=== PATIENT | male | born 1960 | race Caucasian/White ===

== ENCOUNTER → 2016-04-12 | Outpatient (CLI) | payer BC ==
[~2016-04-12] MED LIST: ADVIN25/60 INH; ATRINS NEB; CMD10 PO; DMD20 PO; DXY100 PO; HYDR-4332 PO; IPRASOL34 INH; LANS30CA63 PO; MELO15TA4 PO; METH1TAB81 PO; METO5TAB25 PO; NRN300 PO; OXGN; POTA-327 PO; POTA10TA PO; PRED10TA PO; SENN-61 PO; SPRIN/30 INH; TIOTCAP INH; VNTHFA/IN INH; WARF5TAB90 PO
== END | disposition home or self-care (01) ==
LOC: C.RDSM 09:39
PROVIDERS: ATTEND Orthopaedic Surgery Sports Medicine
DX: M17.9 Osteoarthritis of knee, unspecified (principal)

== ENCOUNTER → 2016-07-24 | Outpatient (CLI) | payer OTHER, BC ==
[~2016-07-24] MED LIST changes: -PRED10TA PO
--- NOTE | 2016-07-24 17:00 | DIAGNOSTIC IMAGING REPORT ---
MRI THE LEFT UPPER ARM NO CONTRAST CLINICAL HISTORY: Pain, swelling, black and blue arm. COMPARISON STUDY: No previous studies for comparison. FINDINGS: Imaging was performed the sagittal axial and coronal planes. No intravenous contrast was administered. The study is limited from a technical standpoint. The patient would not tolerate additional imaging. There are no areas of marrow replacement to indicate neoplasm. There are no areas of marrow edema to indicate an acute occult fracture. There is irregularity involving the posterior aspect of the humeral head possibly related to an old injury. The shoulder is very poorly evaluated on this examination of the mid arm. There is however a suspected proximal bicipital tendon rupture. There is an 18 mm mass located anterior to the humeral neck. This demonstrates decreased T1 signal and increased T2 signal. Mild nonspecific this may represent a hematoma. There is a small amount of fluid tracking along the lateral margin of the biceps muscle. This is likely posttraumatic. IMPRESSION: 1. Very limited study from a technical standpoint 2. No evidence of occult fracture 3. Suspected proximal bicipital tendon rupture. An MRI of the shoulder is recommended in follow-up 4. Fluid tracking along the lateral margin of the biceps muscle, likely posttraumatic. Electronically signed by: Chaz Stewart M.D. 07/24/2016 4:59 PM Dictated Date/Time: 07/24/2016 4:53 PM
== END | disposition home or self-care (01) ==
LOC: C.MRI 14:53
PROVIDERS: ATTEND Nurse Practitioner Family
DX: M79.89 Other specified soft tissue disorders (principal); M79.602 Pain in left arm

== ENCOUNTER 2016-09-27 16:00 | Emergency (ER) | payer OTHER, BC ==
[~2016-09-27] VITALS: Ht 170.2 cm; Wt 94.0 kg
[~2016-09-27 16:00] MED LIST changes: -ATRINS NEB; -POTA10TA PO; -SPRIN/30 INH; -WARF5TAB90 PO
[2016-09-27 16:12] VITALS: TEMP 36.5; Ht 170.2 cm; Wt 94.0 kg
[2016-09-27] MEDS ORDERED: POTA10TA PO (17:15)
[2016-09-27] MEDS ORDERED: WARF5TAB90 PO (17:15)
[2016-09-27] MEDS ORDERED: SPRIN/30 INH (17:15)
[2016-09-27] MEDS ORDERED: ATRINS NEB (17:15)
--- NOTE | 2016-09-27 18:14 | DIAGNOSTIC IMAGING REPORT ---
RIGHT HIP UNILATERAL 2 VIEWS CLINICAL HISTORY: Right hip pain. COMPARISON: None. DISCUSSION: No acute fractures are visualized. There is cortical/periosteal thickening involving the proximal femoral diaphysis, likely chronic. IMPRESSION: 1. No acute fractures 2. No evidence of significant joint space narrowing 3. Cortical/periosteal thickening involving the proximal femoral diaphysis, likely chronic Electronically signed by: Chaz Stewart M.D. 09/27/2016 6:13 PM Dictated Date/Time: 09/27/2016 6:12 PM
--- NOTE | 2016-09-27 18:23 | EMERGENCY ROOM VISIT NOTE ---
ED Visit Note First contact with patient: 16:55 CHIEF COMPLAINT: Right hip injury at work 2 hours ago HISTORY OF PRESENT ILLNESS: Patient is a 56-year-old white male who presents emergency department for evaluation of right hip pain and bruising after a mechanical fall at work today. 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 He is chronically anticoagulated on warfarin secondary to history of DVT and PE. His INR was 3.2 3 days ago. He noted swelling and bruising in the right buttocks/right hip region almost immediately , states that it has gone down slightly. He notes discomfort in the hip and buttocks that he rates a 4/10. He is able to walk and bear weight but it is slightly painful. He did not strike his head or lose consciousness. He denies any other injuries. REVIEW OF SYSTEMS: Review of systems as per HPI. All other systems reviewed were negative. At least 6 systems reviewed. PMH: Electronic medical records are reviewed and summarized as above/below. See Problem List. SOCIAL HISTORY: Patient lives at home. Smoker. PHYSICAL EXAM: Vital Signs: Reviewed Nurse's notes. CONSTITUTIONAL: Patient is a pleasant, well-appearing 56-year-old white male who is awake and alert and in no acute distress. MUSCULOSKELETAL: Examination of the right hip and lower extremity did not show any obvious deformity. He has swelling and hematoma palpable in the soft tissue of the right gluteal region. He does have some discomfort over the right greater trochanter. No pain in the groin. Leg lengths are symmetrical. He has some discomfort with logroll, no pain with hip flexion or internal or external rotation. Distal pulses are easily palpable. Sensation light touch is intact. Pelvis is stable to rock and compression. EMERGENCY DEPARTMENT COURSE: X-rays of the right hip were obtained, and negative for acute fracture or bony abnormality. The patient is anticoagulated on Coumadin, INR was greater than 3 just a few days ago. He sustained a mechanical fall, landing striking his right hip and buttocks. He has a hematoma in the soft tissue, no fracture by radiographs. Patient is otherwise without injury. He was reassured. He was encouraged to ice the area, use Tylenol for discomfort, and can resume normal activity as his symptoms allow. Differential diagnosis included fracture, dislocation, contusion, soft tissue injury, among others. The patient rated his discomfort a 2/10 at discharge. Medication reconciliation: I attest that I have personally reviewed the patient' s current medication list. Patient was reviewed in the [facility] Prescription Drug Monitoring Program, he receives regular Amidon 10 mg prescriptions from his primary physician registered dental assistant rda, Norberto Watson. His last prescription was filled 09/16. Blood pressure screening : Patient was found to have normal blood pressure on screening and does not require follow-up. RIGHT HIP UNILATERAL 2 VIEWS CLINICAL HISTORY: Right hip pain. COMPARISON: None. DISCUSSION: No acute fractures are visualized. There is cortical/periosteal thickening involving the proximal femoral diaphysis, likely chronic. IMPRESSION: 1. No acute fractures 2. No evidence of significant joint space narrowing 3. Cortical/periosteal thickening involving the proximal femoral diaphysis, likely chronic Problem List Medical Problems: (1) Anticoagulated on Coumadin Status: Chronic (2) COPD (chronic obstructive pulmonary disease) Status: Chronic (3) COPD exacerbation Status: Resolved (4) Diverticulitis of colon with perforation Status: Resolved (5) GERD (gastroesophageal reflux disease) Status: Chronic (6) History of DVT (deep vein thrombosis) Status: Resolved (7) History of pulmonary embolism Status: Resolved (8) Hypoxia Status: Resolved (9) Pneumonia Status: Resolved (10) Respiratory distress Status: Resolved (11) Shortness of breath Status: Resolved (12) Wheezing on auscultation Status: Resolved Surgical Problems: (1) H/O hernia repair Status: Resolved (2) H/O: knee surgery Status: Resolved (3) Hx of appendectomy Status: Resolved (4) Hx of cholecystectomy Status: Resolved (5) S/p closure of enterostomy Permanent Comment: with large intestine resection and anastomosis 06/05/2015 Status: Resolved (6) S/P exploratory laparotomy Permanent Comment: for diverticulitis with perforation November 2014 Status: Resolved (7) S/P gastric bypass Status: Resolved (8) S/P tonsillectomy Status: Resolved Current/Historical Medications Scheduled Doxycycline Hyclate (Doxycycline Hyclate), 100 MG PO BID Fluticasone Prop/Salmeterol (Advair Diskus 250/50 60 Dose), 1 PUFF INH BID Gabapentin (Gabapentin), 300 MG PO TID Home O2 Therapy (Oxygen), 2.5 LITER NA HS Ipratropium [place] (Ipratropium [place]), 1 VIAL NEB QID Lansoprazole (Prevacid), 30 MG PO DAILY Potassium Chloride (K-Tabs), 10 MEQ PO DAILY Senna (Senokot), 1 TAB PO BID Tiotropium [place] (Spiriva Handihaler), 1 CAP INH DAILY Torsemide (Torsemide), 20 MG PO DAILY Warfarin Sodium (Coumadin), 9 MG PO DAILY Scheduled PRN Albuterol Hfa (Ventolin Hfa), 2 PUFFS INH Q6 PRN for Wheezing Hydrocodone-Acetaminophen (LORTAB 10-325 mg), 1-2 TAB PO TID PRN for Pain Metolazone (Zaroxolyn), 5 MG PO 3XWK PRN for WEIGHT GAIN Allergies Coded Allergies: Penicillins (Verified Allergy, Intermediate, hives, 01/03/16) Vital Signs Date Time Temp Pulse Resp B/P (MAP) Pulse Ox O2 Delivery O2 Flow Rate FiO2 09/27/16 19:09 78 20 114/63 98 09/27/16 16:12 36.5 89 18 129/74 96 Room Air Departure Information Impression Primary Impression: Right hip pain Additional Impressions: Contusion of buttock Work related injury Referrals Joon Watson PA-C (PCP) Patient Instructions My [facility] Additional Instructions Acetaminophen(Tylenol) may be used for fever or pain. Use 1000mg every six hours as needed. Avoid using more than 3000mg in a 24 hour period. This medication can be taken if you need to drive, work, or perform activities which may be dangerous when taking narcotic pain medication. Ice compresses for 20 minutes at a time four times daily for 2-3 days. Rest and elevate your injury. Continue current medications. Return to the ER immediately for any numbness, tingling, severe pain, extreme swelling in the extremity or as needed. Follow-up with your workers compensation physician for recheck next week. Problem Qualifiers Additional Impressions: Contusion of buttock Encounter type: initial encounter Qualified Codes: S30.0XXA - Contusion of lower back and pelvis, initial encounter
[2016-09-27 19:09] VITALS: BP 114/63; PULSE 78; O2SAT 98
== END 2016-09-27 19:11 | disposition home or self-care (01) ==
LOC: C.EDB 16:01 → C.EDD 19:11
DX: S30.0XXA Contusion of lower back and pelvis, initial encounter (principal); M25.551 Pain in right hip; W01.0XXA Fall on same level from slipping, tripping and stumbling without subsequent striking against object, initial encounter; Y92.89 Other specified places as the place of occurrence of the external cause; Y99.0 Civilian activity done for income or pay; F17.200 Nicotine dependence, unspecified, uncomplicated; J44.9 Chronic obstructive pulmonary disease, unspecified; K21.9 Gastro-esophageal reflux disease without esophagitis; K57.32 Diverticulitis of large intestine without perforation or abscess without bleeding; Z86.711 Personal history of pulmonary embolism; Z86.718 Personal history of other venous thrombosis and embolism; Z98.84 Bariatric surgery status; Z90.49 Acquired absence of other specified parts of digestive tract; Z98.890 Other specified postprocedural states; Z79.01 Long term (current) use of anticoagulants; Z79.899 Other long term (current) drug therapy; Z88.0 Allergy status to penicillin

== ENCOUNTER → 2016-10-02 | Outpatient (CLI) | payer OTHER, BC ==
[~2016-10-02] MED LIST changes: +ATRINS NEB; -CMD10 PO; -IPRASOL34 INH; -MELO15TA4 PO; -METH1TAB81 PO; -POTA-327 PO; +POTA10TA PO; +SPRIN/30 INH; -TIOTCAP INH; +WARF5TAB90 PO
[2016-10-02 14:42] LABS: INR 1.9 (0.9-1.1); PROTHROMBIN TIME (PATIENT) 20.9 SECONDS (9.0-12.0)
--- NOTE | 2016-10-02 14:52 | DIAGNOSTIC IMAGING REPORT ---
L-SPINE MIN 4 VIEWS ROUTINE CLINICAL HISTORY: Pain following fall. COMPARISON: None FINDINGS: There is slight leftward curvature of the lumbar spine. Vertebral body heights are maintained. There is no acute fracture. There is severe disc space narrowing with osteophyte formation and vacuum disc phenomenon at several levels within the lumbar spine. Note is made of cholecystectomy clips and bowel anastomoses. There is moderate multilevel facet arthrosis. IMPRESSION: 1. No lumbar spine fracture. 2. Moderate to severe multilevel degenerative disc disease and facet arthrosis. Electronically signed by: Cornelius Max M.D. 10/02/2016 2:51 PM Dictated Date/Time: 10/02/2016 2:49 PM
--- NOTE | 2016-10-02 14:52 | DIAGNOSTIC IMAGING REPORT ---
LEFT RIBS UNILATERAL WITH PA CHEST CLINICAL HISTORY: PAIN AFTER FALL trauma. Pain. COMPARISON STUDY: None FINDINGS: Normal left ribs. Negative PA chest. IMPRESSION: No acute process. The above report was generated using voice recognition software. It may contain grammatical, syntax or spelling errors. Electronically signed by: Malcolm Gomez M.D. 10/02/2016 2:50 PM Dictated Date/Time: 10/02/2016 2:49 PM
== END | disposition home or self-care (01) ==
LOC: C.LAB1850 13:52
PROVIDERS: ATTEND Nurse Practitioner Family
DX: R52 Pain, unspecified (principal)

== ENCOUNTER 2017-04-21 20:06 | Emergency (ER) | payer OTHER, BC ==
[~2017-04-21] VITALS: Ht 165.1 cm; Wt 98.0 kg
[2017-04-21 20:07] VITALS: BP 99/91; PULSE 100; TEMP 36.8; O2SAT 95; Ht 165.1 cm; Wt 98.0 kg
[2017-04-21] MEDS ORDERED: LIDOCAINE/EPINEPHRINE 1% 20 ML VIAL INFIL ONE (20:15)
--- NOTE | 2017-04-22 18:30 | EMERGENCY ROOM VISIT NOTE ---
History First contact with patient: 20:09 Chief Complaint: LACERATION/CUT (SUT/DERMABOND) Stated Complaint: LEG BLEEDING Nursing Triage Summary: Pt on Coumadin. Pt was getting out of car and had scraped left calf. Police had applied tourniquet at scene. Large horseshoe shape laceration to left calf. History of Present Illness The patient is a 56 year old male who presents to the Emergency Room with complaints of left lower leg bleeding after injury that occurred about 90 minutes ago. The patient is getting out of the vehicle, when the car door struck into his leg, causing a laceration. The patient states that he was at work when this occurred. The patient is on Coumadin for blood clots, and had an INR performed earlier today that was 2.5. The patient was attended to via police, who placed a tourniquet at the scene. He arrives via ambulance and does not report additional injury. The patient rates his discomfort a 4/10. He believes he is up-to-date on his tetanus. Review of Systems More than 10 systems were reviewed and otherwise negative with the exception of history of present illness. Past Medical/Surgical History Medical Problems: (1) Anticoagulated on Coumadin (2) COPD (chronic obstructive pulmonary disease) (3) COPD exacerbation (4) Diverticulitis of colon with perforation (5) GERD (gastroesophageal reflux disease) (6) History of DVT (deep vein thrombosis) (7) History of pulmonary embolism (8) Hypoxia (9) Pneumonia (10) Respiratory distress (11) Shortness of breath (12) Wheezing on auscultation Surgical Problems: (1) H/O hernia repair (2) H/O: knee surgery (3) Hx of appendectomy (4) Hx of cholecystectomy (5) S/p closure of enterostomy (6) S/P exploratory laparotomy (7) S/P gastric bypass (8) S/P tonsillectomy Family History No pertinent family history Social History Smoking Status: Current Every Day Smoker Alcohol Use: none Drug Use: none Marital Status: Housing Status: lives with significant other Occupation Status: employed Current/Historical Medications Scheduled Doxycycline Hyclate (Doxycycline Hyclate), 100 MG PO BID Fluticasone Prop/Salmeterol (Advair Diskus 250/50 60 Dose), 1 PUFF INH BID Gabapentin (Gabapentin), 300 MG PO TID Home O2 Therapy (Oxygen), 2.5 LITER NA HS Ipratropium [place] (Ipratropium [place]), 1 VIAL NEB QID Lansoprazole (Prevacid), 30 MG PO DAILY Potassium Chloride (K-Tabs), 10 MEQ PO DAILY Senna (Senokot), 1 TAB PO BID Tiotropium [place] (Spiriva Handihaler), 1 CAP INH DAILY Torsemide (Torsemide), 20 MG PO DAILY Warfarin Sodium (Coumadin), 9 MG PO DAILY Scheduled PRN Albuterol Hfa (Ventolin Hfa), 2 PUFFS INH Q6 PRN for Wheezing Hydrocodone-Acetaminophen (LORTAB 10-325 mg), 1-2 TAB PO TID PRN for Pain Metolazone (Zaroxolyn), 5 MG PO 3XWK PRN for WEIGHT GAIN Physical Exam Vital Signs Date Time Temp Pulse Resp B/P (MAP) Pulse Ox O2 Delivery O2 Flow Rate FiO2 04/21/17 20:07 36.8 100 18 99/91 95 Room Air Physical Exam VITALS: Vitals are noted on the nurse's note and reviewed by myself. Vital signs stable. GENERAL: Well-developed, well-nourished, white male, who is in no acute distress and resting comfortably. Patient is cooperative with the examination. HEART: Regular rate and rhythm without murmurs gallops or rubs. LUNGS: Clear to auscultation bilaterally without wheezes, rales or rhonchi. No retractions or accessory muscle use. MUSCULOSKELETAL: There is a 6 cm U-shaped laceration to the left medial posterior calf. This does gape and will require repair. There is minimal bleeding, however there is return again in place just proximal to the laceration. The patient is intact neurovascularly. No other injuries noted. Medical Decision & Procedures Procedure Laceration repair. Patient elects to have their laceration repaired. Verbal consent was obtained to perform the procedure. There is an abundance of materials available for the procedure. Patient is not allergic to latex. Procedure was performed by NELSON Holman, under my direct supervision. Using sterile technique the wound was cleaned with Betadine. The area was sterilely draped. 10 ml of 1% buffered lidocaine with epi was used to anesthetize the left leg laceration. Once the patient was anesthetized, the wound was copiously irrigated under pressure with sterile saline. The wound was explored and there were no deep structures injured such as tendons, bone, or significant blood vessels. The laceration was repaired using 17 monalisa with the wound edges being well approximated. Hemostasis was achieved. The area was cleaned with sterile saline and dressed with bacitracin ointment and bandage. Patient tolerated the procedure well without complications. Blood loss was negligible. ED Course Physical exam and history were performed. Nursing notes, EMR, and Medication List were personally reviewed. Patient appears to have suffered a laceration to his left posterior leg. The wound was numbed and cleansed. Repair was performed as above without complication. Overall the patient appears well for discharge home. His INR will need to be rechecked on a short interval. He was dressed with a pressure dressing. He was otherwise invited back to the ER with any new, worsening, or concerning symptoms. The chart was completed utilizing [email or web address] Speech Voice Recognition Software. Grammatical errors, random word insertions, pronoun errors, and incomplete sentences are an occasional consequence of this system due to software limitations, ambient noise, and hardware issues. Any formal questions or concerns about the content, text, or information contained within the body of this dictation should be directly addressed to the provider for clarification. . Medical Decision Differential diagnosis includes, but is not limited to: Laceration, abrasion, foreign body, anticoagulant use, and others Impression Primary Impression: Laceration of left leg Departure Information Dispostion Home / Self-Care Condition GOOD Forms HOME CARE DOCUMENTATION FORM, IMPORTANT VISIT INFORMATION Patient Instructions [facility], ED Laceration All, ED Scar Tips to Minimize Additional Instructions Keep wound clean and dry. Do not allow any crusting or dried blood to accumulate on sutures. If this occurs, use a mild soap/water on a Q-tip to clean the wound. Do not use Peroxide to clean the wound as this can delay healing Use an antibiotic ointment like Bacitracin for 3-4 days, then let wound dry. You may bathe and shower as normal, but DO NOT SOAK the wound. Suture removal in about 12-14 days with your Family Doctor or in the ER. Return sooner for any signs of infection, increasing redness, swelling, or drainage.
[2017-04-29] MEDS ORDERED: WARF4TAB8 PO (11:57)
[2017-04-29] MEDS ORDERED: WARF6TAB5 PO (11:57)
[2017-04-29] MEDS ORDERED: HYDR-5688 PO (14:43)
[2017-04-29] MEDS ORDERED: CEPH500C PO (14:43)
== END 2017-04-21 22:18 | disposition home or self-care (01) ==
LOC: EDBD 20:06 → C.EDD 20:07
DX: S81.812A Laceration without foreign body, left lower leg, initial encounter (principal); V48.4XXA Person boarding or alighting a car injured in noncollision transport accident, initial encounter; Y99.0 Civilian activity done for income or pay; J44.9 Chronic obstructive pulmonary disease, unspecified; K21.9 Gastro-esophageal reflux disease without esophagitis; F17.200 Nicotine dependence, unspecified, uncomplicated; Z86.711 Personal history of pulmonary embolism; Z86.718 Personal history of other venous thrombosis and embolism; Z79.01 Long term (current) use of anticoagulants; Z98.84 Bariatric surgery status

== ENCOUNTER 2017-05-02 12:10 | Emergency (ER) | payer OTHER, BC ==
[~2017-05-02] VITALS: Ht 163.8 cm; Wt 98.0 kg
[~2017-05-02 12:10] MED LIST changes: +CEPH500C PO; -HYDR-4332 PO; +HYDR-5688 PO; +WARF4TAB8 PO; -WARF5TAB90 PO; +WARF6TAB5 PO
[2017-05-02 12:13] VITALS: TEMP 36.6; Ht 163.8 cm; Wt 98.0 kg
[2017-05-02] MEDS ORDERED: HYDROCODONE/ACETAMIN 5/325MG TAB PO STA (12:41)
[2017-05-02] MEDS ORDERED: HYDR-5688 PO (13:26)
--- NOTE | 2017-05-02 13:43 | EMERGENCY ROOM VISIT NOTE ---
History First contact with patient: 12:18 Chief Complaint: SUTURE/STAPLE REMOVAL Stated Complaint: L LEG FOLLOW UP STICHES REMOVED History of Present Illness The patient is a 56 year old male who presents to the Emergency Room for suture removal of left lower leg and cellulitis recheck of the left lower leg. The patient states that he had the sutures placed 11 days ago. He denies any purulent drainage. He states it is very painful in that area. He states it hurts to bear weight. He denies any fever. He is taking the Keflex as prescribed. Review of Systems 10 system review was performed and was negative unless stated otherwise history of present illness. Past Medical/Surgical History Medical Problems: (1) Anticoagulated on Coumadin (2) COPD (chronic obstructive pulmonary disease) (3) COPD exacerbation (4) Diverticulitis of colon with perforation (5) GERD (gastroesophageal reflux disease) (6) History of DVT (deep vein thrombosis) (7) History of pulmonary embolism (8) Hypoxia (9) Pneumonia (10) Respiratory distress (11) Shortness of breath (12) Wheezing on auscultation Surgical Problems: (1) H/O hernia repair (2) H/O: knee surgery (3) Hx of appendectomy (4) Hx of cholecystectomy (5) S/p closure of enterostomy (6) S/P exploratory laparotomy (7) S/P gastric bypass (8) S/P tonsillectomy Social History Smoking Status: Current Every Day Smoker Alcohol Use: none Drug Use: none Marital Status: Housing Status: lives with significant other Occupation Status: employed Current/Historical Medications Scheduled Cephalexin Monohydrate (Keflex), 500 MG PO QID Doxycycline Hyclate (Doxycycline Hyclate), 100 MG PO BID Fluticasone Prop/Salmeterol (Advair Diskus 250/50 60 Dose), 1 PUFF INH BID Gabapentin (Gabapentin), 300 MG PO TID Home O2 Therapy (Oxygen), 2.5 LITER NA HS Ipratropium [place] (Ipratropium [place]), 1 VIAL NEB QID Lansoprazole (Prevacid), 30 MG PO DAILY Potassium Chloride (K-Tabs), 10 MEQ PO DAILY Senna (Senokot), 2 TAB PO DAILY Tiotropium [place] (Spiriva Handihaler), 1 CAP INH DAILY Torsemide (Torsemide), 20 MG PO DAILY Warfarin Sod (Jantoven), 8 MG PO 3XWK Warfarin Sod (Jantoven), 6 MG PO 4XWK Scheduled PRN Albuterol Hfa (Ventolin Hfa), 2 PUFFS INH Q6 PRN for Wheezing Hydrocodone/Acetaminophen 5MG/325MG ([place] 5MG/325MG), 1-2 TABS PO Q6H PRN for Pain Metolazone (Zaroxolyn), 5 MG PO 3XWK PRN for WEIGHT GAIN Physical Exam Vital Signs Date Time Temp Pulse Resp B/P (MAP) Pulse Ox O2 Delivery O2 Flow Rate FiO2 05/02/17 12:13 36.6 91 17 124/70 92 Room Air Physical Exam GENERAL 56-year-old white male appears in no acute distress. MENTAL Status: Alert and oriented 3. LEFT LOWER LEG: Sutured wound on the medial aspect without any signs of infection. There is no increased temperature to touch. There is no erythema. The skin flap appears very ecchymotic. Medical Decision & Procedures Medications Administered Medications (Trade) Dose Ordered Sig/Luis Antonio Route Start Time Stop Time Status Last Admin Dose Admin Acetaminophen/ Hydrocodone Bitart ([place] 5/325 Tab) 2 tab NOW STAT PO 05/02/17 12:41 05/02/17 12:43 DC 05/02/17 13:02 2 TAB ED Course The patient was evaluated. I removed multiple sutures and the wound edges immediately . I kept a few of the sutures in place and approximated the remainder with a few Steri-Strips. I gave the patient Chapin 5/325 mg 2 tablets p.o. for pain. Had the special education case managerclinical statistics manager the wound clinic. Orders to evaluate and treat were sent to the wound clinic. Also I wrote a note to send to his employer that he should be off work until evaluated at the wound clinic. The wound was redressed and the patient was discharged home in stable condition. Medical Decision Differential diagnosis include cellulitis, wound infection, wound necrosis The patient has not healed in 11 days therefore I think he needs evaluated at the wound clinic for further wound care. [place] Drug Monitoring Program Search Results: patient reviewed within database Medication Reconcilliation Current Medication List: was personally reviewed by me Blood Pressure Screening Patient's blood pressure: Normal blood pressure Impression Primary Impression: Skin tear Additional Impression: Cellulitis Departure Information Dispostion Home / Self-Care Condition GOOD Prescriptions Hydrocodone/Acetaminophen 5MG/325MG (Chap[place] 5MG/325MG) Tab 1-2 TABLET PO Q6 Y for Pain, #20 TAB For Initial Treatment Prov: Laury Gomez PA-C 05/02/17 Referrals Andrzej Mata M.D. (PCP) Forms HOME CARE DOCUMENTATION FORM, IMPORTANT VISIT INFORMATION Patient Instructions My [employer] Additional Instructions Take Chapin as needed for pain. Keep leg elevated whenever possible. Off work until evaluated by the wound clinic. Change dressing daily if it becomes soiled. Continue antibiotics as prescribed. Problem Qualifiers Additional Impression: Cellulitis Site of cellulitis: extremity Site of cellulitis of extremity: lower extremity Laterality: left Qualified Codes: L03.116 - Cellulitis of left lower limb
[2017-05-02 14:06] VITALS: BP 120/77; PULSE 90; O2SAT 95
== END 2017-05-02 14:06 | disposition home or self-care (01) ==
LOC: C.EDB 12:11 → C.EDC 14:06
DX: S81.802A Unspecified open wound, left lower leg, initial encounter (principal); L03.116 Cellulitis of left lower limb; W22.8XXA Striking against or struck by other objects, initial encounter; Y92.9 Unspecified place or not applicable; J44.9 Chronic obstructive pulmonary disease, unspecified; K57.92 Diverticulitis of intestine, part unspecified, without perforation or abscess without bleeding; K21.9 Gastro-esophageal reflux disease without esophagitis; Z86.718 Personal history of other venous thrombosis and embolism; Z86.711 Personal history of pulmonary embolism; Z87.01 Personal history of pneumonia (recurrent); F17.210 Nicotine dependence, cigarettes, uncomplicated; Z98.84 Bariatric surgery status; Z79.01 Long term (current) use of anticoagulants; Z79.899 Other long term (current) drug therapy

== ENCOUNTER → 2017-05-08 | Outpatient (CLI) | payer OTHER, BC | END | disposition home or self-care (01) | LOC: C.RDSM 16:37 | PROVIDERS: ATTEND Orthopaedic Surgery Sports Medicine | DX: M17.0 Bilateral primary osteoarthritis of knee (principal) ==